=== PATIENT | female | born 2000 | race Two or more races ===

== ENCOUNTER 2020-07-18 01:47 | Emergency (ER) | payer OTHER ==
[~2020-07-18] VITALS: Ht 154.9 cm; Wt 54.4 kg
[2020-07-18] MEDS ORDERED: KEFLEX500 MG PO (08:20)
[2020-07-18] MEDS ORDERED: TYLENOL EXTRA500 MG PO (08:21)
== END 2020-07-18 08:32 | disposition home or self-care (01) ==
LOC: ER 01:47
DX: N39.0 Urinary tract infection, site not specified (principal); R50.9 Fever, unspecified; Z03.818 Encounter for observation for suspected exposure to other biological agents ruled out; R53.81 Other malaise